=== PATIENT | female | born 2000 | race Caucasian/White ===

== ENCOUNTER 2022-04-13 23:22 | Emergency (ER) | payer OTHER ==
--- NOTE | 2022-04-13 23:27 | ERPHSYRPT ---
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 She felt that she was bit behind the left ear approximately 1030 this morning. She felt burning and redness and thought she was stung by bee. The symptoms appeared to be worsening so she gave herself an epi injection. During the day the redness and swelling and tenderness was worsening. She did take generic Claritin. The symptoms have not subsided. They have not worsened. She is breathing fine. She has no difficulty swallowing. She has no stridor. She is not coughing. However she does feel that the swelling and redness and burning is still present and not improving. She is here because she thinks she is still having an allergic reaction to that insect sting. She did not visualize the actual insect. Timing/Duration: today Quality: burning, itchy, painful Severity: mild (Moderate) Location: other (Right posterior regular and upper lateral neck on the left side) Possible Causes: insect sting Modifying Factors: Improves With: other (She gave herself a epinephrine injection as well as, later in the day, taking a generic Claritin) Associated Symptoms: swelling/mass/lumps (Left posterior auricular and upper neck swelling) Allergies/Adverse Reactions: bee pollen Allergy (Severe, Verified 04/13/22 23:39) Difficulty Breathing Travel Risk - International Travel Have you traveled outside of the country in past 3 weeks: No - Coronavirus Screening Are you exhibiting any of the following symptoms?: No Close contact with a COVID-19 positive Pt in past 14-21 Days: No - Review of Systems Constitutional: No Symptoms Eyes: No Symptoms Ears, Nose, & Throat: No Symptoms Respiratory: No Symptoms Cardiac: No Symptoms Abdominal/Gastrointestinal: No Symptoms Genitourinary Symptoms: No Symptoms Musculoskeletal: No Symptoms Skin: Other (Left posterior auricular and upper left lateral's skin reddened swollen painful itchy) Neurological: No Symptoms Psychological: No Symptoms Endocrine: No Symptoms Hematologic/Lymphatic: No Symptoms Immunological/Allergic: No Symptoms All Other Systems: Reviewed and Negative - Past Medical History Neurological History: No Pertinent History Respiratory History: Asthma Endocrine Medical History: No Pertinent History Musculoskeletal History: No Pertinent History - Nursing Vital Signs Nursing Vital Signs: Initial Vital Signs Temperature 98.2 F 04/13/22 23:29 Pulse Rate 79 04/13/22 23:29 Respiratory Rate 16 04/13/22 23:29 Blood Pressure 151/77 04/13/22 23:29 O2 Sat by Pulse Oximetry 99 04/13/22 23:29 Pain Scale Pain Intensity 6 - Physical Exam General Appearance: no apparent distress, alert, anxiety Eye Exam: PERRL/EOMI, eyes nml inspection Ears, Nose, Throat Exam: normal ENT inspection, moist mucous membranes Neck Exam: supple, full range of motion, other (The skin overlying the posterior auricular area on the left as well as the skin of the upper lateral neck on the left side is red tender swollen. There is no rash in this area. There is no abscess present. Patient has no stridor) Respiratory Exam: normal breath sounds, lungs clear, airway intact, No chest tenderness, No respiratory distress, No wheezing, No stridor Cardiovascular Exam: regular rate/rhythm, normal heart sounds, normal peripheral pulses Pelvic Exam: not done Rectal Exam: not done Back Exam: normal inspection, normal range of motion, No CVA tenderness, No vertebral tenderness Extremity Exam: normal inspection, normal range of motion, pelvis stable Neurologic Exam: alert, oriented x 3, cooperative, pit slagman II-XII nml as tested, normal mood/affect, nml cerebellar function, nml station & gait, sensation nml Skin Exam: other Lymphatic Exam: No adenopathy SpO2 Interpretation: normal O2 Delivery: Room Air Ordered Tests: Medication Summary Discontinued Medications Generic Name Dose Route Start Last Admin Trade Name Payamq PRN Reason Stop Dose Admin Diphenhydramine HCl 25 mg 04/13/22 23:37 Diphenhydramine Hcl 25 Mg Capsule PO 04/13/22 23:38 STAT ONE Famotidine 20 mg 04/13/22 23:37 Famotidine 20 Mg Tablet PO 04/13/22 23:38 STAT ONE Prednisone 20 mg 04/13/22 23:38 Prednisone 20 Mg Tablet PO 04/13/22 23:39 STAT ONE - Progress Progress: unchanged - Departure Departure Disposition: Home Clinical Impression: Allergic reaction Condition: Stable Critical Care Time: No Referrals: BRADLEY VILLAGOMEZ NP [Primary Care Provider] - Follow up/PCP as directed Additional Instructions: Take Benadryl 25 mg orally 3 times a day [id number] for the next 4 days. Take the prednisone and Pepcid prescription as prescribed. Return to the emergency department if symptoms worsen. Prescriptions: Prednisone 10 mg [Deltasone 10 mg] 10 mg PO TID #12 tablet Famotidine 20 mg [Pepcid 20 MG] 20 mg PO DAILY #5 tablet
[2022-04-13] MEDS ORDERED: BENADRYL 25 MG CAPSULE PO ONE (23:37)
[2022-04-13] MEDS ORDERED: Pepcid 20 MG PO ONE (23:37)
[2022-04-13] MEDS ORDERED: DELTASONE 20 MG PO ONE (23:38)
[2022-04-13] MEDS ORDERED: DELTASONE 20 MG ONE (23:42)
[2022-04-13] MEDS ORDERED: Pepcid 20 MG ONE (23:42)
[2022-04-13] MEDS ORDERED: BENADRYL 25 MG CAPSULE ONE (23:42)
[2022-04-14 00:05] VITALS: BP 127/79; PULSE 75; O2SAT 98
== END 2022-04-14 00:09 | disposition home or self-care (01) ==
LOC: ED 23:22
DX: T63.441A Toxic effect of venom of bees, accidental (unintentional), initial encounter (principal); R22.1 Localized swelling, mass and lump, neck; L54 Erythema in diseases classified elsewhere; Z79.52 Long term (current) use of systemic steroids
CPT/HCPCS: 99283; A9270-GY